=== PATIENT | male | born 2000 | race Two or more races ===

== ENCOUNTER 2025-06-21 16:57 | Emergency (ER) | payer MEDICAID, SELFPAY ==
[2025-06-21 16:57] VITALS: BMI 25.0
[2025-06-21 17:49] VITALS: BP 120/78; PULSE 77; RESP 16; TEMP 36.8; O2SAT 98
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
[2025-06-21] MEDS: IBUPROFEN TAB 400 MG TABLET 800 MG PO (18:16)
[2025-06-21] MEDS: ACETAMINOPHEN 325 MG TABLET 650 MG PO (18:17)
[2025-06-21] MEDS: BACITRACIN OINT 1 GM PACKET 2 GM TOP (18:18)
== END 2025-06-21 18:42 | disposition home or self-care (01) ==
PROVIDERS: Emergency Provider Emergency Medicine
DX: T23.102A Burn of first degree of left hand, unspecified site, initial encounter (principal); T31.0 Burns involving less than 10% of body surface; T59.811A Toxic effect of smoke, accidental (unintentional), initial encounter
CPT/HCPCS: 99282; A9270